=== PATIENT | female | born 1990 | race Two or more races ===

== ENCOUNTER 2017-09-07 20:01 | Emergency (ER) | payer OTHER ==
[~2017-09-07] VITALS: Ht 154.9 cm; Wt 57.2 kg
[2017-09-07 20:48] VITALS: BP 123/84
[2017-09-07 20:51] LABS: Urine Bacteria NONE SEEN /hpf (None Seen); Urine Blood Negative /uL (Negative); Urine Mucus FEW (None Seen); Urine Specific Gravity 1.018 (1.001-1.035); Urine WBC 1 /hpf (0 - 5)
== END 2017-09-08 00:55 | disposition left against medical advice (07) ==
LOC: ER 20:01
DX: R10.9 Unspecified abdominal pain (principal); R11.2 Nausea with vomiting, unspecified; R19.7 Diarrhea, unspecified; Z53.21 Procedure and treatment not carried out due to patient leaving prior to being seen by health care provider
CPT/HCPCS: 74176; 81001

== ENCOUNTER 2022-10-15 19:17 | Emergency (ER) | payer OTHER ==
[~2022-10-15] VITALS: Ht 154.9 cm; Wt 60.0 kg
[2022-10-15] MEDS ORDERED: KETOROLAC TROMETH 60MG/2ML VIAL IM ONE (19:45)
[2022-10-15 20:12] LABS: Basophils # (auto) 0.1 10 ^3/uL (0-0.2); Basophils % (auto) 0.3 % (0.0-2.0); Eosinophils # (auto) 0 10 ^3/uL (0-0.8); Hematocrit 41.4 % (36.0-46.0); Hemoglobin 13.7 g/dL (12.2-16.2); Lymphocytes # (auto) 0.7 10 ^3/uL (0.4-5.4); Lymphocytes % (auto) 3.8 % (10.0-50.0); Mean Corpuscular Hemoglobin 28.3 pg (28.0-32.0); Mean Corpuscular Hgb Conc. 33.1 g/dL (32.0-36.0); Mean Corpuscular Volume 85.3 fL (80.0-100.0); Monocytes # (auto) 2.1 10 ^3/uL (0-1.3); Monocytes % (auto) 10.8 % (0.0-12.0); Neutrophils # (auto) 16.5 10 ^3/uL (1.6-8.6); Neutrophils % (auto) 85.1 % (37.0-80.0); Red Blood Cells 4.86 10^6/uL (4.0-5.20); Red Cell Distribution Width 13.3 % (11.8-14.3); White Blood Cell 19.4 10^3/uL (4.4-10.8)
[2022-10-15 20:47] LABS: Albumin 3.4 g/dL (3.4-5.0); Calcium 8.6 mg/dL (8.5-10.1); Potassium 3.3 mmol/L (3.5-5.1)
[2022-10-15 20:51] LABS: BUN/Creatinine Ratio 10.1 (10.0-20.0); Bilirubin, Total 0.9 mg/dL (0.2-1.0)
[2022-10-15] MEDS ORDERED: cefTRIAXone W LIDOCAINE 1 GM IM IM ONE (21:00)
[2022-10-15 21:28] LABS: Urine Bacteria NONE SEEN /hpf (None Seen); Urine Blood 2+ /uL (Negative); Urine Mucus FEW (None Seen); Urine Specific Gravity 1.024 (1.001-1.035); Urine WBC 715 /hpf (0 - 5)
[2022-10-15] MEDS ORDERED: ZOFR4T PO (22:01)
[2022-10-15] MEDS ORDERED: CEPH500T PO (22:01)
[2022-10-15] MEDS ORDERED: cefTRIAXone SOD 1,000 MG VL ONE (23:10)
[2022-10-15 23:30] VITALS: BP 113/72; PULSE 100; RESP 18; TEMP 98.2; O2SAT 98
== END 2022-10-15 23:30 | disposition home or self-care (01) ==
LOC: ER 19:22
DX: N12 Tubulo-interstitial nephritis, not specified as acute or chronic (principal); R10.2 Pelvic and perineal pain
CPT/HCPCS: 36415; 74176; 76705; 80053; 81001; 83690; 84702; 85025; 96372; 99285; J0696; J1885